=== PATIENT | male | born 2000 | race Caucasian/White ===

== ENCOUNTER 2018-04-25 19:53 | Emergency (ER) | payer OTHER ==
--- NOTE | 2018-04-25 20:19 | EDPHY ---
General Time Seen by Provider: 04/25/18 20:01 Narrative: CHIEF COMPLAINT: Abdominal pain HISTORY OF PRESENT ILLNESS: Patient presents by private vehicle with complaints of abdominal pain. He states pain that started approximately 5:00 p.m. While sitting at his desk doing homework. It is right lower quadrant. Described as constant but does wax and wane with short periods of improvement, approximately 2-3 minute spontaneously. He describes it as a deep, sharp and cramping type pain. Some exacerbation with sitting. No worse with palpation or movement. Some improvement with inspiration and stretching. No nausea or vomiting. One episode of diarrhea today. No radiating pain. No chest pain or shortness of breath but no cough no fever. No trauma or injury. No previous abdominal pathology or surgeries. He does have family history of possible inflammatory bowel and celiac disease. No other associated complaints or modifying factors. REVIEW OF SYSTEMS: 10 systems were reviewed and negative with the exception of the elements mentioned in the history of present illness. PCP: Located in [place] SPECIALISTS: None PAST MEDICAL HISTORY: None PAST SURGICAL HISTORY: None SOCIAL HISTORY: Nonsmoker. Occasional alcohol use. Occasional marijuana use. Originally from [place]. [employer] student. FAMILY HISTORY: Possible inflammatory bowel and celiac sprue EXAMINATION: General Appearance: Alert, no distress. Ambulatory. Conversing in full sentences. Head: normocephalic, atraumatic Eyes: Pupils equal and round, no conjunctival pallor or injection ENT, Mouth: Mucous membranes moist Neck: Normal inspection, supple, non-tender Respiratory: Lungs are clear to auscultation Cardiovascular: Regular rate and rhythm Gastrointestinal: Muscular Abdomen is soft and nontender. No tympany rigidity. No guarding. Negative Mendes. Negative McBurney. No obturator's sign. No CVA tenderness. Back: non-tender, no bony abnormalities Neurological: A&O, nonfocal, normal gait Skin: Warm and dry, no rash no petechiae or purpura Extremities: Nontender, no pedal edema Psychiatric: Mood and affect normal DIFFERENTIAL DIAGNOSES: Including but not limited to colitis, appendicitis, enteritis, mesenteric adenitis, constipation, inflammatory bowel, irritable bowel MDM: 8:00 p.m. Right lower quadrant abdominal pain that has been colicky this evening over the past 2 hr. His abdominal exam is benign with no tenderness to exam, but his pain is deeper to the palpable area of the abdomen. His vital signs are within normal limits. He is in no acute distress. I have ordered laboratory studies urinalysis. He does not require any pain medication at this time. He is fully ambulatory. Nontoxic. 8:55 p.m. Laboratory studies are unremarkable for any acute findings. X-rays pending. 9:30 p.m. X-rays negative for any acute findings. Patient re-evaluated. He reports that his pain has continued to improve here in the emergency department without any intervention. Currently 07/27. We discussed further evaluation with ultrasound or CT scan and he would not like to proceed. I do not feel he warrants any emergent imaging at this time as he has no tenderness on palpation. He is well- appearing with normal vital signs. We discussed follow up with [facility] at . We discussed ED precautions for any return of his pain, palpable pain, radiating pain, nausea, vomiting fever. He voices understanding of this. He is comfortable with being discharged home with these precautions. He is discharged in stable condition. SUPERVISION: This patient was independently evaluated without direct involvement of or examination by the attending physician. CONSULTATION: None - Diagnostics Imaging Results: Imaging Impressions Abdomen X-Ray 04/25/18 20:25 Impression: 1. No significant abnormality within the abdomen. - Objective Vital Signs: Initial Vital Signs Temperature (C) 97.9 F 04/25/18 20:00 Heart Rate 83 04/25/18 20:00 Respiratory Rate 16 04/25/18 20:00 Blood Pressure 169/94 H 04/25/18 20:00 O2 Sat (%) 99 04/25/18 20:00 O2 Delivery Mode Room Air Allergies/Adverse Reactions: No Known Allergies Allergy (Unverified 04/25/18 20:01) Home Medications: Medication Instructions Recorded Adderall 10 MG (*) 04/25/18 Minocycline HCl 04/25/18 Laboratory Results: Laboratory Results 04/25/18 20:05 04/25/18 20:05 04/25/18 04/25/18 04/25/18 20:05 20:05 20:05 WBC 10.89 10^3/uL H 10^3/uL (3.80-9.50) RBC 5.74 10^6/uL 10^6/uL (4.40-6.38) Hgb 17.1 g/dL g/dL (13.7-17.5) Hct 50.0 % % (40.0-51.0) MCV 87.1 fL fL (81.5-99.8) MCH 29.8 pg pg (27.9-34.1) MCHC 34.2 g/dL g/dL (32.4-36.7) RDW 12.0 % % (11.5-15.2) Plt Count 273 10^3/uL 10^3/uL (150-400) MPV 9.1 fL fL (8.7-11.7) Neut % (Auto) 65.0 % % (39.3-74.2) Lymph % (Auto) 24.7 % % (15.0-45.0) [place] % (Auto) 7.2 % % (4.5-13.0) Eos % (Auto) 2.2 % % (0.6-7.6) Baso % (Auto) 0.6 % % (0.3-1.7) Nucleat RBC Rel Count 0.0 % % (0.0-0.2) Absolute Neuts (auto) 7.08 10^3/uL H 10^3/uL (1.70-6.50) Absolute Lymphs (auto) 2.69 10^3/uL 10^3/uL (1.00-3.00) Absolute Monos (auto) 0.78 10^3/uL 10^3/uL (0.30-0.80) Absolute Eos (auto) 0.24 10^3/uL 10^3/uL (0.03-0.40) Absolute Basos (auto) 0.07 10^3/uL 10^3/uL (0.02-0.10) Absolute Nucleated RBC 0.00 10^3/uL 10^3/uL (0-0.01) Immature Gran % 0.3 % % (0.0-1.1) Immature Gran # 0.03 10^3/uL 10^3/uL (0.00-0.10) Sodium 135 mEq/L mEq/L (135-145) Potassium 4.1 mEq/L mEq/L (3.3-5.0) Chloride 102 mEq/L mEq/L (97-110) Carbon Dioxide 22 mEq/l mEq/l (22-31) Anion Gap 11 mEq/L mEq/L (8-16) BUN 19 mg/dL mg/dL (7-23) Creatinine 1.1 mg/dL mg/dL (0.7-1.3) Estimated GFR > 60 Glucose 114 mg/dL H mg/dL (70-100) Calcium 10.2 mg/dL mg/dL (8.5-10.4) Total Bilirubin 0.5 mg/dL mg/dL (0.1-1.4) Conjugated Bilirubin 0.1 mg/dL mg/dL (0.0-0.5) Unconjugated Bilirubin 0.4 mg/dL mg/dL (0.0-1.1) AST 29 IU/L IU/L (17-59) ALT 33 IU/L IU/L (21-72) Alkaline Phosphatase 88 IU/L IU/L (38-126) Total Protein 8.1 g/dL g/dL (6.3-8.2) Albumin 4.9 g/dL g/dL (3.5-5.0) Lipase 115 IU/L IU/L (23-300) Urine Color COLORLESS Urine Appearance CLEAR Urine pH 6.0 (5.0-7.5) Ur Specific [place] 1.005 (1.002-1.030) Urine Protein NEGATIVE (NEGATIVE) Urine Ketones NEGATIVE (NEGATIVE) Urine Blood NEGATIVE (NEGATIVE) Urine Nitrate NEGATIVE (NEGATIVE) Urine Bilirubin NEGATIVE (NEGATIVE) Urine Urobilinogen NEGATIVE EU EU (0.2-1.0) Ur Leukocyte Esterase NEGATIVE (NEGATIVE) Urine Glucose NEGATIVE (NEGATIVE) Departure - Departure Disposition: Home, Routine, Self-Care Clinical Impression: Abdominal pain in male Condition: Good Instructions: Acute Abdominal Pain (ED) Additional Instructions: 1. Contact [facility] at to be evaluated there on Tuesday or 2. Return to emergency department for any return of pain, palpable pain, fever, nausea, vomiting or back pain 3. Increase her fluid intake for the next 48 hr Referrals: [facility] [Other] - As per Instructions [facility],. [Clinic] - As per Instructions
[2018-04-25 20:31] LABS: PLATELET COUNT 273 10^3/uL (150-400)
[2018-04-25 21:44] VITALS: BP 146/73
== END 2018-04-25 21:44 | disposition home or self-care (01) ==
DX: R10.9 Unspecified abdominal pain (principal)